=== PATIENT | female | born 1955 | race Caucasian/White ===

== ENCOUNTER → 2017-07-07 | Outpatient (CLI) | payer BC, OTHER ==
[~2017-07-07] MED LIST: METHACHOLINE KIT (J7674) INH ONE
--- NOTE | 2017-07-07 10:14 | PFTRPT ---
Tech: Radah DRISCOLL RRT Age: 62 Sex: Female Race: Height: 61.00 Inches Weight: 215.00 Lbs BSA: 1.95 Diagnosis: R05 METHACHOLINE CHALLENGE REPORT: ORDERING PROVIDER: ELEN Hanks DATE OF SERVICE: 07/07/17 INTERPRETATION: The study was of excellent technical quality. Under protocol, methacholine was administered. At a dose of 0.25 mg (1.375 CDUs), a 23% decline in the FEV1 was noted. The PC20 of 0.15 is significant. Flow rates did return to baseline post bronchodilator administration. IMPRESSION: Positive methacholine challenge study. MTDD
== END ==
LOC: M CARPUL 09:10
PROVIDERS: ATTEND Nurse Practitioner Adult Health
DX: R05 Cough (principal); R06.02 Shortness of breath

== ENCOUNTER → 2017-07-21 | Outpatient (CLI) | payer BC, OTHER ==
[2017-07-21 19:16] LABS: BASO % 0.6 % (0.0-1.0); EOS # 0.1 K/mm3 (0.0-0.50); EOS % 0.9 % (0.0-3.0); LARGE UNSTAINED CELL # 0.1 K/mm3 (0.0-0.4); LARGE UNSTAINED CELL % 1.3 % (0.0-4.0); LYMPH # 2.2 K/mm3 (1.5-4.5); LYMPH % 28.4 % (24.0-44.0); MEAN CORPUSCULAR HEMOGLOBIN 29.4 pg (27.0-33.0); MEAN CORPUSCULAR HGB CONC 31.7 g/dl (32.0-36.5); MEAN CORPUSCULAR VOLUME 92.7 fl (80.0-96.0); MONO # 0.3 K/mm3 (0.0-0.8); MONO % 4.1 % (0.0-5.0); NEUTROPHILS # 4.7 K/mm3 (1.8-7.7); NEUTROPHILS % 64.7 % (36.0-66.0); PLATELET COUNT, AUTOMATED 214 k/mm3 (150-450); RED CELL DISTRIBUTION WIDTH 13.7 % (11.5-14.5); WHITE BLOOD COUNT 7.3 K/mm3 (4.0-10.0)
[2017-07-21 19:28] LABS: IMMUNOGLOBULIN E 65.2 IU/ML (<100)
[2017-07-21 19:29] LABS: IMMUNOGLOBULIN G 722 MG/DL (681-1648); IMMUNOGLOBULIN M 65.6 MG/DL (40-230)
[2017-07-27 14:14] LABS: ANTI TETANUS ANTIBODY 2.51 IU/mL (<0.10); IMMUNOGLOBULIN D 5.43 mg/dL (<14.11); STREP PNEUMO TYPE 12F <0.3 ug/mL (>1.3); STREP PNEUMO TYPE 18C 1.2 ug/mL (>1.3); STREP PNEUMO TYPE 19A 1.5 ug/mL (>1.3); STREP PNEUMO TYPE 19F 2.2 ug/mL (>1.3); STREP PNEUMO TYPE 23F <0.3 ug/mL (>1.3); STREP PNEUMO TYPE 6B 0.4 ug/mL (>1.3); STREP PNEUMO TYPE 7F <0.3 ug/mL (>1.3); STREP PNEUMO TYPE 9N 0.9 ug/mL (>1.3); STREP PNEUMO TYPE 9V <0.3 ug/mL (>1.3)
== END ==
LOC: M SMT 12:04
PROVIDERS: ATTEND Allergy & Immunology Allergy
DX: J31.0 Chronic rhinitis (principal); D84.9 Immunodeficiency, unspecified